=== PATIENT | female | born 1965 | race Caucasian/White ===

== ENCOUNTER 2017-06-25 16:28 | Inpatient (IN) | payer OTHER ==
[~2017-06-25] VITALS: Ht 160 cm; Wt 78.0 kg
[~2017-06-25 16:28] MED LIST: BCPILLS PO
[2017-06-25] MEDS ORDERED: SODIUM CHLORIDE 0.9% 1000ML 1,000 ML IV STA (16:40)
[2017-06-25] MEDS ORDERED: ONDANSETRON INJ 2 MG/ML 2 ML VIAL IV STA (16:40)
--- NOTE | 2017-06-25 16:42 | EMERGENCY ROOM VISIT NOTE ---
History Report prepared by Rena: Sung Lowe Under the Supervision of: Dr. Yovani Salazar M.D. First contact with patient: 16:34 Chief Complaint: ABDOMINAL PAIN Stated Complaint: SEVERE ABD PAIN Nursing Triage Summary: Pt with abd pain that started around around 1330 today. History of kidney stones 22 years ago. History of Present Illness The patient is a 52 year old female who presents to the Emergency Room with complaints of constant abdominal pain beginning four hours ago. Per , the patient was driving home when she began to feel pain in her left back and abdomen. He notes that the patient then started dry heaving but did not vomit. He reports that the patient was relieved mildly when she sat down at home. He states that the patient then went to urinate and was only able to urinate a small amount. He notes that the patient's pain significantly worsened when she tried to urinate. The patient also complains of a decreased frequency of urination despite feeling like she needs to urinate. She notes that she took two Tylenol with no relief of her symptoms. She denies any recent abdominal trauma but has a history of kidney stones. She rates her pain as a 10/10. Source of History: patient, spouse/significant other Onset: four hours ago Position: chest (left), abdomen Symptom Intensity: 10/10 Timing: constant Associated Symptoms: No vomiting Note: The patient also complains of a decreased frequency of urination despite feeling like she needs to urinate. She denies any recent abdominal trauma. Review of Systems See HPI for pertinent positives & negatives. A total of 10 systems reviewed and were otherwise negative. Past Medical & Surgical Medical Problems: (1) Kidney stone (2) Kidney stone (3) Viral wart Family History No pertinent family history stated. Social History Smoking Status: Never Smoker Marital Status: Housing Status: lives with family Current/Historical Medications Scheduled Azelastine Hcl-Fluticasone Pro (Dymista), 2 SPRY TIARA BID Fluticasone Propionate (Nasal) (Flonase Allergy Relief), 2 SPRAYS TIARA DAILY Levonorgestrel & Eth Estradiol (Vienva 0.1-20 mg-Mcg), 1 TAB PO DAILY Allergies Coded Allergies: Ibuprofen (Verified Allergy, Severe, HIVES, 06/25/17) Sulfa Antibiotics (Verified Allergy, Severe, HIVES, 06/25/17) Physical Exam Vital Signs Date Time Temp Pulse Resp B/P (MAP) Pulse Ox O2 Delivery O2 Flow Rate FiO2 06/25/17 17:32 94 28 135/79 100 06/25/17 16:31 74 22 129/63 100 Room Air Physical Exam GENERAL: Patient is in significant distress secondary to pain. HEENT: No acute trauma, normocephalic atraumatic, mucous membranes moist, no nasal congestion, no scleral icterus. NECK: No stridor, no adenopathy, no meningismus, trachea is midline. LUNGS: Clear to auscultation bilaterally, no wheeze, no rhonchi, breath sounds equal. HEART: Without murmurs gallops or rubs, regular rate and rhythm. ABDOMEN: Soft, bowel sounds positive, no hernias, no peritonitis. Tender to LLQ. BACK: Left flank discomfort to percussion. EXTREMITIES: No cyanosis or edema, full range of motion of all the joints without pain or difficulty, no signs for acute trauma. NEUROLOGIC: Oriented x 3, no acute motor or sensory deficits, no focal weakness. SKIN: No rash, no jaundice, no diaphoresis. Medical Decision & Procedures ER Provider Diagnostic Interpretation: Radiology results as stated below per my review and radiologist interpretation: CT SCAN OF THE ABDOMEN AND PELVIS WITHOUT IV CONTRAST FINDINGS: Lung bases: The heart is normal in size and without pericardial effusion. The lung bases are clear noting mild left basilar atelectasis. There is a small hiatal hernia. Liver: The unenhanced liver is normal in size, contour, and attenuation. There is no intrahepatic biliary ductal dilatation. Gallbladder: Unremarkable. Spleen: Normal in size and attenuation. Pancreas: Unremarkable. Adrenal glands: Unremarkable. Kidneys: The left kidney is mildly enlarged and edematous. There is a 7 mm obstructing calculus at the left vesicoureteral junction seen on image #351. This causes moderate left hydroureteronephrosis. There is associated left perinephric and periureteric stranding. There are numerous additional punctate nonobstructing left renal calculi. There are numerous (greater than 10) nonobstructing right renal calculi which measure up to 6 mm. There is no right ureteral calculus or hydronephrosis. There is no evidence of contour deforming renal mass lesion. Abdominal vasculature: The abdominal aorta is normal in course and caliber. Bowel: The small bowel and colon are normal in course and caliber. The appendix is well-visualized and normal. Peritoneum: There is no intraperitoneal free air or abdominal ascites. There is a small fat-containing umbilical hernia. Lymphadenopathy: None. Pelvic viscera: The bladder, uterus, and adnexa are normal as visualized. Skeletal structures: No lytic or blastic lesions are seen. IMPRESSION: 1. There is a 7 mm obstructing calculus at the left vesicoureteral junction. This causes moderate left hydroureteronephrosis. 2. Numerous additional nonobstructing calculi are present in both kidneys. 3. Additional findings as above. Electronically signed by: Yovani Alejandro M.D. 06/25/2017 6:14 PM Laboratory Results 06/25/17 16:43 Red Blood Count 4.51, Mean Corpuscular Volume 92.0, Mean Corpuscular Hemoglobin 32.2, Mean Corpuscular Hemoglobin Concent 34.9, Mean Platelet Volume 10.1, Neutrophils (%) (Auto) 77.0, Lymphocytes (%) (Auto) 17.1, Monocytes (%) (Auto) 5.4, Eosinophils (%) (Auto) 0.2, Basophils (%) (Auto) 0.1, Neutrophils # (Auto) 9.61, Lymphocytes # (Auto) 2.13, Monocytes # (Auto) 0.67, Eosinophils # (Auto) 0.03, Basophils # (Auto) 0.01 06/25/17 16:43 Test 06/25/17 16:43 06/25/17 18:45 White Blood Count 12.48 K/uL (4.8-10.8) Red Blood Count 4.51 M/uL (4.2-5.4) Hemoglobin 14.5 g/dL (12.0-16.0) Hematocrit 41.5 % (37-47) Mean Corpuscular Volume 92.0 fL (80-100) Mean Corpuscular Hemoglobin 32.2 pg (25-34) Mean Corpuscular Hemoglobin Concent 34.9 g/dl (32-36) Platelet Count 267 K/uL (130-400) Mean Platelet Volume 10.1 fL (7.4-10.4) Neutrophils (%) (Auto) 77.0 % Lymphocytes (%) (Auto) 17.1 % Monocytes (%) (Auto) 5.4 % Eosinophils (%) (Auto) 0.2 % Basophils (%) (Auto) 0.1 % Neutrophils # (Auto) 9.61 K/uL (1.4-6.5) Lymphocytes # (Auto) 2.13 K/uL (1.2-3.4) Monocytes # (Auto) 0.67 K/uL (0.11-0.59) Eosinophils # (Auto) 0.03 K/uL (0-0.5) Basophils # (Auto) 0.01 K/uL (0-0.2) RDW Standard Deviation 42.4 fL (36.4-46.3) RDW Coefficient of Variation 12.5 % (11.5-14.5) Immature Granulocyte % (Auto) 0.2 % Immature Granulocyte # (Auto) 0.03 K/uL (0.00-0.02) Anion Gap 12.0 mmol/L (3-11) Est Creatinine Clear Calc Drug Dose 65.1 ml/min Estimated GFR () 75.0 Estimated GFR (Non- 64.7 BUN/Creatinine Ratio 17.5 (10-20) Calcium Level 9.3 mg/dl (8.5-10.1) Total Bilirubin 0.6 mg/dl (0.2-1) Aspartate Amino Transf (AST/SGOT) 14 U/L (15-37) Alanine Aminotransferase (ALT/SGPT) 19 U/L (12-78) Alkaline Phosphatase 53 U/L (45-117) Total Protein 8.2 gm/dl (6.4-8.2) Albumin 4.0 gm/dl (3.4-5.0) Globulin 4.2 gm/dl (2.5-4.0) Albumin/Globulin Ratio 1.0 (0.9-2) Lipase 174 U/L (73-393) Urine Color YELLOW Urine Appearance CLEAR (CLEAR) Urine pH 8.0 (4.5-7.5) Urine Specific [place] 1.024 (1.000-1.030) Urine Protein NEG (NEG) Urine Glucose (UA) NEG (NEG) Urine Ketones 3+ (NEG) Urine Occult Blood 1+ (NEG) Urine Nitrite NEG (NEG) Urine Bilirubin NEG (NEG) Urine Urobilinogen NEG (NEG) Urine Leukocyte Esterase TRACE (NEG) Laboratory results reviewed by me. Medications Administered Medications (Trade) Dose Ordered Sig/Lucía Route Start Time Stop Time Status Last Admin Dose Admin Ondansetron HCl (Zofran Inj) 4 mg NOW STAT IV 06/25/17 16:40 06/25/17 16:42 DC 06/25/17 16:50 4 MG Sodium Chloride 1,000 ml @ 999 mls/hr Q1H1M STAT IV 06/25/17 16:40 06/25/17 17:40 DC 06/25/17 16:50 999 MLS/HR Morphine Sulfate (MoRPHine SULFATE INJ) 2 mg STK-MED ONCE .ROUTE 06/25/17 16:46 06/25/17 16:47 DC 06/25/17 16:46 2 MG Morphine Sulfate (MoRPHine SULFATE INJ) 4 mg STK-MED ONCE .ROUTE 06/25/17 16:46 06/25/17 16:47 DC 06/25/17 16:50 4 MG Promethazine HCl 12.5 mg/Sodium Chloride 50.5 ml @ 204 mls/hr NOW STAT IV 06/25/17 17:11 06/25/17 17:25 DC 06/25/17 17:34 204 MLS/HR Hydromorphone HCl (Dilaudid Inj) 0.5 mg STK-MED ONCE .ROUTE 06/25/17 17:23 06/25/17 17:24 DC 06/25/17 17:30 0.5 MG Hydromorphone HCl (Dilaudid Inj) 0.5 mg STK-MED ONCE .ROUTE 06/25/17 19:07 06/25/17 19:08 DC 06/25/17 19:10 0.5 MG ED Course 1636: The patient was evaluated in room A8. A complete history and physical exam was performed. 1640: Sodium Chloride 1000 ml @ 999 mls/hr IV, Zofran Inj 4mg IV 1710: I reevaluated the patient, she is still having a lot of pain. 1711: Dilaudid Inj 0.5mg IV, Promethazine HCl 12.5mg/Sodium Chloride 50.5 ml @ 204mls/hr 1820: I reevaluated and updated the patient. I spoke to her about the size of her stone. 1838: Upon reexamination the patient is stable. I discussed results and treatment plan with the patient. She verbalizes agreement and understanding. I spoke with Dr. Lindo - Robert Austin. We discussed the patient's results and findings. The patient will be evaluated for further management. 1903: Dilaudid Inj 0.5mg IV Medical Decision Differential diagnoses include: Renal colic, UTI, diverticulitis, bowel perforation, hernia, and mesenteric adenitis. There is a mild leukocytosis, likely consistent with her pain. No concerning anemia. No significant electrolyte abnormalities. No kidney failure, hepatitis or pancreatitis. Urinalysis shows some blood and ketones, microscopic breakdown of the UA is pending. Abdominal and pelvis CT shows a 7 mm left ureteral stone at the UV junction. Hydronephrosis was present. The patient was in significant discomfort. She was given IV saline, IV Zofran and IV morphine. She required IV Dilaudid and then IV Phenergan. The Dilaudid and Phenergan seemed to help her symptoms more than the morphine and Zofran. The patient is still having discomfort. She is going to require a hospital stay for pain control and possibly urologic intervention if the stone does not pass naturally. I spoke to the patient and case management. The on-call hospitalist was consulted. Medication Reconcilliation Current Medication List: was personally reviewed by me Blood Pressure Screening Patient's blood pressure: Elevated blood pressure Blood pressure disposition: Elevated BP felt to be situational Consults Time Called: 1835 Consulting Physician: Dr. Lindo - Robert Hawk Returned Call: [phone] Discussed the patient's case. The patient will be evaluated for further management. Impression Primary Impression: Renal colic Scribe Attestation The scribe's documentation has been prepared under my direction and personally reviewed by me in its entirety. I confirm that the note above accurately reflects all work, treatment, procedures, and medical decision making performed by me. Departure Information Dispostion Being Evaluated By Hospitalist Referrals No Doctor, Assigned (PCP) Patient Instructions My [facility]
[2017-06-25] MEDS ORDERED: MoRPHine SULFATE 10 MG/ML CARP/VIAL IV PRN (16:45)
[2017-06-25] MEDS ORDERED: MoRPHine SULFATE 4 MG/ML 1 ML CARP\\VIAL ONE (16:46)
[2017-06-25] MEDS ORDERED: MoRPHine SULFATE 2 MG/ML CARP ONE (16:46)
[2017-06-25 17:00] LABS: BASO % 0.1 %; BASO ABS # 0.01 K/uL (0-0.2); COMPLETE YES; EOS % 0.2 %; HEMATOCRIT 41.5 % (37-47); IG% 0.2 %; LYMPH % 17.1 %; LYMPH ABS # 2.13 K/uL (1.2-3.4); MEAN CORPUSCULAR HEMOGLOBIN 32.2 pg (25-34); MEAN CORPUSCULAR HGB CONC 34.9 g/dl (32-36); MEAN PLATELET VOLUME 10.1 fL (7.4-10.4); MONO % 5.4 %; PLATELET COUNT 267 K/uL (130-400); RED BLOOD COUNT 4.51 M/uL (4.2-5.4); WHITE BLOOD COUNT 12.48 K/uL (4.8-10.8)
[2017-06-25] MEDS ORDERED: PROMETHAZINE HCL INJ 12.5 MG in SODIUM CHLORIDE 0.9% 50ML 50 ML IV STA (17:11)
[2017-06-25] MEDS ORDERED: HYDROmorphone INJ 2 MG/ML SYR/VIAL IV STA ×2 (17:11→19:03)
[2017-06-25] MEDS ORDERED: HYDROmorphone INJ 0.5 MG/0.5 ML SYR ONE ×2 (17:23→19:07)
[2017-06-25] MEDS ORDERED: FLUT0.15 NAE (17:25)
[2017-06-25] MEDS ORDERED: [UNRECOGNIZED DRUG - CODE] PO (17:25)
[2017-06-25] MEDS ORDERED: AZEL30SP NAE (17:25)
[2017-06-25 17:26] LABS: BUN/CREATININE RATIO 17.5 (10-20); CALCIUM 9.3 mg/dl (8.5-10.1); POTASSIUM 3.4 mmol/L (3.5-5.1)
--- NOTE | 2017-06-25 18:15 | DIAGNOSTIC IMAGING REPORT ---
CT SCAN OF THE ABDOMEN AND PELVIS WITHOUT IV CONTRAST CLINICAL HISTORY: Flank pain and hematuria. COMPARISON STUDY: No priors. TECHNIQUE: CT scan of the abdomen and pelvis is performed from the lung bases to the proximal femora. Images are reviewed in the axial, sagittal, and coronal planes. IV contrast was not administered for this examination as per the referring clinician. A dose lowering technique was utilized adhering to the principles of ALARA. CT DOSE: 957.51 mGy.cm FINDINGS: Lung bases: The heart is normal in size and without pericardial effusion. The lung bases are clear noting mild left basilar atelectasis. There is a small hiatal hernia. Liver: The unenhanced liver is normal in size, contour, and attenuation. There is no intrahepatic biliary ductal dilatation. Gallbladder: Unremarkable. Spleen: Normal in size and attenuation. Pancreas: Unremarkable. Adrenal glands: Unremarkable. Kidneys: The left kidney is mildly enlarged and edematous. There is a 7 mm obstructing calculus at the left vesicoureteral junction seen on image #351. This causes moderate left hydroureteronephrosis. There is associated left perinephric and periureteric stranding. There are numerous additional punctate nonobstructing left renal calculi. There are numerous (greater than 10) nonobstructing right renal calculi which measure up to 6 mm. There is no right ureteral calculus or hydronephrosis. There is no evidence of contour deforming renal mass lesion. Abdominal vasculature: The abdominal aorta is normal in course and caliber. Bowel: The small bowel and colon are normal in course and caliber. The appendix is well-visualized and normal. Peritoneum: There is no intraperitoneal free air or abdominal ascites. There is a small fat-containing umbilical hernia. Lymphadenopathy: None. Pelvic viscera: The bladder, uterus, and adnexa are normal as visualized. Skeletal structures: No lytic or blastic lesions are seen. IMPRESSION: 1. There is a 7 mm obstructing calculus at the left vesicoureteral junction. This causes moderate left hydroureteronephrosis. 2. Numerous additional nonobstructing calculi are present in both kidneys. 3. Additional findings as above. Electronically signed by: Yovani Alejandro M.D. 06/25/2017 6:14 PM Dictated Date/Time: 06/25/2017 6:09 PM
[2017-06-25 19:11] LABS: URINE APPEARANCE CLEAR (CLEAR); URINE BILIRUBIN NEG (NEG); URINE COLOR YELLOW; URINE EPITHELIAL CELL AUTO >30 /lpf (0-5); URINE NITRITE NEG (NEG); URINE SPECIFIC GRAVITY 1.024 (1.000-1.030); UROBILINOGEN NEG (NEG); ZZUR CULT IF INDIC CLEAN CATCH NO
[2017-06-25 19:19] LABS: MANUAL MICROSCOPIC REQUIRED? NO; REVIEW REQ? YES
[2017-06-25 19:44] LABS: URINE MUCUS PRESENT (NONE PRSENT)
[2017-06-25] MEDS ORDERED: POLYETHYLENE (MIRALAX) 17 GM PACK PO PRN (19:45)
[2017-06-25] MEDS ORDERED: ONDANSETRON INJ 2 MG/ML 2 ML VIAL IV PRN (19:45)
[2017-06-25] MEDS ORDERED: ACETAMINOPHEN 325 MG TAB PO PRN (19:45)
[2017-06-25 20:10] VITALS: BP 151/82; PULSE 84; TEMP 36.6; O2SAT 100; Ht 160 cm; Wt 78.0 kg
[2017-06-25] MEDS: SODIUM CHLORIDE 0.9% 1000ML 1,000 ML IV SCH (20:22)
[2017-06-25 20:33] LABS: PROTHROMBIN TIME (PATIENT) 10.8 SECONDS (9.0-12.0)
[2017-06-25] MEDS ORDERED: SODIUM CHLORIDE 0.9% 1000ML 1,000 ML IV SCH (20:49)
[2017-06-25] MEDS ORDERED: NALOXONE HCL 0.4 MG/1 ML VIAL/CARP IV PRN (21:00)
[2017-06-25] MEDS ORDERED: TAMSULOSIN HCL 0.4 MG CAP PO SCH (21:00)
[2017-06-25] MEDS ORDERED: HYDROmorphone HCL 0.5MG/ML 50 ML CASSETTE ONE (21:07)
--- NOTE | 2017-06-25 21:08 | History and Physical ---
History & Physical Date & Time of Service: Jun 25, 2017 at 20:51 Chief Complaint: Kidney Stone Primary Care Physician: Won Camargo D.O. History of Present Illness Source: patient, spouse, clinic records, hospital records 52 yo F with h/o kidney stones presents with sudden onset L flank pain and chills several hours [employer]. She reports a radiation of the pain into her L groin area. She denies any blood in her urine and denies UTI symptoms. She underwent a CT a/p without contrast revealing a 7mm obstructing calculus at the left vesicoureteral junction causing moderate L hydroureteronephrosis. Numerous additional nonobstructing calculi are present in both kidneys. She denies nausea, vomiting, chest pain, shortness of breath. She had a normal BM today. Past Medical/Surgical History Medical Problems: (1) Angioedema Permanent Comment: in response to Ibuprofen Status: Chronic (2) Nephrolithiasis Status: Chronic (3) Seasonal allergic rhinitis Status: Chronic (4) Viral wart Status: Resolved Surgical Problems: (1) S/P Status: Chronic Family History FH: HTN (hypertension) Scleroderma Social History Smoking Status: Never Smoker Smokeless Tobacco Use: No Alcohol Use: socially Drug Use: none Marital Status: Housing status: lives with significant other Immunizations History of Influenza Vaccine: Yes Influenza Vaccine Date: Aug 07, 2008 History of Tetanus Vaccine?: Unknown History of Pneumococcal: No History of Hepatitis B Vaccine: No Multi-Drug Resistant Organisms History of MDRO: No Allergies Coded Allergies: Amoxicillin (Verified Allergy, Severe, hives, 06/25/17) Demerol Hcl (Verified Allergy, Severe, hives, 06/25/17) Ibuprofen (Verified Allergy, Severe, HIVES, 06/25/17) Sulfa Antibiotics (Verified Allergy, Severe, HIVES, 06/25/17) Home Medications Scheduled Azelastine Hcl-Fluticasone Pro (Dymista), 2 SPRY TIARA BID Fluticasone Propionate (Nasal) (Flonase Allergy Relief), 2 SPRAYS TIARA DAILY Levonorgestrel & Eth Estradiol (Vienva 0.1-20 mg-Mcg), 1 TAB PO DAILY Review of Systems At least ten systems were reviewed and negative except as indicated in HPI above. Physical Exam Vital Signs Date Time Temp Pulse Resp B/P (MAP) Pulse Ox O2 Delivery O2 Flow Rate FiO2 06/25/17 20:05 64 18 137/77 98 06/25/17 17:32 94 28 135/79 100 06/25/17 16:31 74 22 129/63 100 Room Air General Appearance: WD/WN, + moderate distress Head: normocephalic, atraumatic Eyes: normal inspection, sclerae normal ENT: hearing grossly normal Neck: trachea midline Respiratory/Chest: lungs clear, normal breath sounds, no respiratory distress, no accessory muscle use Cardiovascular: regular rate, rhythm, no edema, no gallop, no JVD, no murmur, normal peripheral pulses Abdomen/GI: + pertinent finding (hypoactive bowel sounds, LLQ TTP, no CVA tenderness) Back: normal inspection, no CVA tenderness Extremities/Musculoskelatal: normal inspection, no pedal edema, normal range of motion 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, no motor/sensory deficits, alert, normal mood/affect, oriented x 3 Skin: normal color, warm/dry, no rash Diagnostics Laboratory Results 06/25/17 16:43 Red Blood Count 4.51, Mean Corpuscular Volume 92.0, Mean Corpuscular Hemoglobin 32.2, Mean Corpuscular Hemoglobin Concent 34.9, Mean Platelet Volume 10.1, Neutrophils (%) (Auto) 77.0, Lymphocytes (%) (Auto) 17.1, Monocytes (%) (Auto) 5.4, Eosinophils (%) (Auto) 0.2, Basophils (%) (Auto) 0.1, Neutrophils # (Auto) 9.61, Lymphocytes # (Auto) 2.13, Monocytes # (Auto) 0.67, Eosinophils # (Auto) 0.03, Basophils # (Auto) 0.01 06/25/17 16:43 Test 06/25/17 16:43 06/25/17 18:45 White Blood Count 12.48 K/uL (4.8-10.8) Red Blood Count 4.51 M/uL (4.2-5.4) Hemoglobin 14.5 g/dL (12.0-16.0) Hematocrit 41.5 % (37-47) Mean Corpuscular Volume 92.0 fL (80-100) Mean Corpuscular Hemoglobin 32.2 pg (25-34) Mean Corpuscular Hemoglobin Concent 34.9 g/dl (32-36) Platelet Count 267 K/uL (130-400) Mean Platelet Volume 10.1 fL (7.4-10.4) Neutrophils (%) (Auto) 77.0 % Lymphocytes (%) (Auto) 17.1 % Monocytes (%) (Auto) 5.4 % Eosinophils (%) (Auto) 0.2 % Basophils (%) (Auto) 0.1 % Neutrophils # (Auto) 9.61 K/uL (1.4-6.5) Lymphocytes # (Auto) 2.13 K/uL (1.2-3.4) Monocytes # (Auto) 0.67 K/uL (0.11-0.59) Eosinophils # (Auto) 0.03 K/uL (0-0.5) Basophils # (Auto) 0.01 K/uL (0-0.2) RDW Standard Deviation 42.4 fL (36.4-46.3) RDW Coefficient of Variation 12.5 % (11.5-14.5) Immature Granulocyte % (Auto) 0.2 % Immature Granulocyte # (Auto) 0.03 K/uL (0.00-0.02) Prothrombin Time 10.8 SECONDS (9.0-12.0) Prothromb Time International Ratio 1.0 (0.9-1.1) Anion Gap 12.0 mmol/L (3-11) Est Creatinine Clear Calc Drug Dose 65.1 ml/min Estimated GFR () 75.0 Estimated GFR (Non- 64.7 BUN/Creatinine Ratio 17.5 (10-20) Calcium Level 9.3 mg/dl (8.5-10.1) Total Bilirubin 0.6 mg/dl (0.2-1) Aspartate Amino Transf (AST/SGOT) 14 U/L (15-37) Alanine Aminotransferase (ALT/SGPT) 19 U/L (12-78) Alkaline Phosphatase 53 U/L (45-117) Total Protein 8.2 gm/dl (6.4-8.2) Albumin 4.0 gm/dl (3.4-5.0) Globulin 4.2 gm/dl (2.5-4.0) Albumin/Globulin Ratio 1.0 (0.9-2) Lipase 174 U/L (73-393) Urine Color YELLOW Urine Appearance CLEAR (CLEAR) Urine pH 8.0 (4.5-7.5) Urine Specific [place] 1.024 (1.000-1.030) Urine Protein NEG (NEG) Urine Glucose (UA) NEG (NEG) Urine Ketones 3+ (NEG) Urine Occult Blood 1+ (NEG) Urine Nitrite NEG (NEG) Urine Bilirubin NEG (NEG) Urine Urobilinogen NEG (NEG) Urine Leukocyte Esterase TRACE (NEG) Urine WBC (Auto) 1-5 /hpf (0-5) Urine RBC (Auto) 10-30 /hpf (0-4) Urine Hyaline Casts (Auto) 1-5 /lpf (0-5) Urine Epithelial Cells (Auto) >30 /lpf (0-5) Urine Bacteria (Auto) NEG (NEG) Urine Renal Epithelial Cells /lpf (0-5) Urine Crystals AMORPHOUS SEDIMENT (NONE Urine Mucus PRESENT (NONE PRSENT) Results Past 24 Hours Test 06/25/17 16:43 06/25/17 18:45 Range/Units White Blood Count 12.48 4.8-10.8 K/uL Red Blood Count 4.51 4.2-5.4 M/uL Hemoglobin 14.5 12.0-16.0 g/dL Hematocrit 41.5 37-47 % Mean Corpuscular Volume 92.0 80-100 fL Mean Corpuscular Hemoglobin 32.2 25-34 pg Mean Corpuscular Hemoglobin Concent 34.9 32-36 g/dl Platelet Count 267 130-400 K/uL Mean Platelet Volume 10.1 7.4-10.4 fL Neutrophils (%) (Auto) 77.0 % Lymphocytes (%) (Auto) 17.1 % Monocytes (%) (Auto) 5.4 % Eosinophils (%) (Auto) 0.2 % Basophils (%) (Auto) 0.1 % Neutrophils # (Auto) 9.61 1.4-6.5 K/uL Lymphocytes # (Auto) 2.13 1.2-3.4 K/uL Monocytes # (Auto) 0.67 0.11-0.59 K/uL Eosinophils # (Auto) 0.03 0-0.5 K/uL Basophils # (Auto) 0.01 0-0.2 K/uL RDW Standard Deviation 42.4 36.4-46.3 fL RDW Coefficient of Variation 12.5 11.5-14.5 % Immature Granulocyte % (Auto) 0.2 % Immature Granulocyte # (Auto) 0.03 0.00-0.02 K/uL Prothrombin Time 10.8 9.0-12.0 SECONDS Prothromb Time International Ratio 1.0 0.9-1.1 Sodium Level 137 136-145 mmol/L Potassium Level 3.4 3.5-5.1 mmol/L Chloride Level 105 98-107 mmol/L Carbon Dioxide Level 20 21-32 mmol/L Anion Gap 12.0 3-11 mmol/L Blood Urea Nitrogen 17 7-18 mg/dl Creatinine 1.00 0.60-1.20 mg/dl Est Creatinine Clear Calc Drug Dose 65.1 ml/min Estimated GFR () 75.0 Estimated GFR (Non- 64.7 BUN/Creatinine Ratio 17.5 10-20 Random Glucose 137 70-99 mg/dl Calcium Level 9.3 8.5-10.1 mg/dl Total Bilirubin 0.6 0.2-1 mg/dl Aspartate Amino Transf (AST/SGOT) 14 15-37 U/L Alanine Aminotransferase (ALT/SGPT) 19 12-78 U/L Alkaline Phosphatase 53 45-117 U/L Total Protein 8.2 6.4-8.2 gm/dl Albumin 4.0 3.4-5.0 gm/dl Globulin 4.2 2.5-4.0 gm/dl Albumin/Globulin Ratio 1.0 0.9-2 Lipase 174 73-393 U/L Urine Color YELLOW Urine Appearance CLEAR CLEAR Urine pH 8.0 4.5-7.5 Urine Specific [place] 1.024 1.000-1.030 Urine Protein NEG NEG Urine Glucose (UA) NEG NEG Urine Ketones 3+ NEG Urine Occult Blood 1+ NEG Urine Nitrite NEG NEG Urine Bilirubin NEG NEG Urine Urobilinogen NEG NEG Urine Leukocyte Esterase TRACE NEG Urine WBC (Auto) 1-5 0-5 /hpf Urine RBC (Auto) 10-30 0-4 /hpf Urine Hyaline Casts (Auto) 1-5 0-5 /lpf Urine Epithelial Cells (Auto) >30 0-5 /lpf Urine Bacteria (Auto) NEG NEG Urine Renal Epithelial Cells 0-5 /lpf Urine Crystals AMORPHOUS SEDIMENT NONE PRSENT Urine Mucus PRESENT NONE PRSENT Diagnostic Radiology CT SCAN OF THE ABDOMEN AND PELVIS WITHOUT IV CONTRAST CLINICAL HISTORY: Flank pain and hematuria. COMPARISON STUDY: No priors. TECHNIQUE: CT scan of the abdomen and pelvis is performed from the lung bases to the proximal femora. Images are reviewed in the axial, sagittal, and coronal planes. IV contrast was not administered for this examination as per the referring clinician. A dose lowering technique was utilized adhering to the principles of ALARA. CT DOSE: 957.51 mGy.cm FINDINGS: Lung bases: The heart is normal in size and without pericardial effusion. The lung bases are clear noting mild left basilar atelectasis. There is a small hiatal hernia. Liver: The unenhanced liver is normal in size, contour, and attenuation. There is no intrahepatic biliary ductal dilatation. Gallbladder: Unremarkable. Spleen: Normal in size and attenuation. Pancreas: Unremarkable. Adrenal glands: Unremarkable. Kidneys: The left kidney is mildly enlarged and edematous. There is a 7 mm obstructing calculus at the left vesicoureteral junction seen on image #[id number]. This causes moderate left hydroureteronephrosis. There is associated left perinephric and periureteric stranding. There are numerous additional punctate nonobstructing left renal calculi. There are numerous (greater than 10) nonobstructing right renal calculi which measure up to 6 mm. There is no right ureteral calculus or hydronephrosis. There is no evidence of contour deforming renal mass lesion. Abdominal vasculature: The abdominal aorta is normal in course and caliber. Bowel: The small bowel and colon are normal in course and caliber. The appendix is well-visualized and normal. Peritoneum: There is no intraperitoneal free air or abdominal ascites. There is a small fat-containing umbilical hernia. Lymphadenopathy: None. Pelvic viscera: The bladder, uterus, and adnexa are normal as visualized. Skeletal structures: No lytic or blastic lesions are seen. IMPRESSION: 1. There is a 7 mm obstructing calculus at the left vesicoureteral junction. This causes moderate left hydroureteronephrosis. 2. Numerous additional nonobstructing calculi are present in both kidneys. 3. Additional findings as above. Impression Assessment and Plan 52 yo F presents with L kidney stone and severe renal colic. 1. Renal colic 2/2 L 7mm vesicourethral stone--pt has a h/o kidney stones which have all passed spontaneously in the past. With size and degree of discomfort, will contact Urology. Current goals are pain control and will give Dilaudid TRACK OILER for this as well as scheduled Tylenol. Flomax given, NS @ 150 mls/ hr overnight and strain all urine. Antiemetics PRN. NPO p MN in case of procedure in am. 2. Seasonal allergies-cont Flonase and Azelastine nasal sprays. 3. Perimenopause-on Orsythia which is a non-formulary estrogen supplement due nightly. Pharmacy to assist with NF medication. Pt aware she may have to use home med. DVT proph-Lovenox on hold in case of procedure in am. Full Code Reg Diet/NPO p MN Dispo-Med/Surg Susanne Lindo DO [facility] Level of Care Med/Surg Resuscitation Status FULL RESUSCITATION VTE Prophylaxis VTE Risk Assessment Done? Y/N: Yes Risk Level: Moderate Given or contraindicated: Enoxaparin (Lovenox)SQ
[2017-06-25] MEDS: HYDROmorphone HCL 0.5MG/ML 50 ML CASSETTE IV PRN ×2 (21:36→23:10)
[2017-06-25] MEDS ORDERED: HYDROmorphone INJ 0.5 MG/0.5 ML SYR IV ONE (22:00)
[2017-06-25] MEDS: ACETAMINOPHEN 500 MG TAB PO SCH (22:21)
[2017-06-25] MEDS: DOCUSATE SODIUM/SENNA 50/8.6MG TAB PO SCH (22:21)
[2017-06-25 22:34] VITALS: BP 130/83; PULSE 86; TEMP 36.8; O2SAT 98
[2017-06-25 23:30] VITALS: BP 108/67; PULSE 81; TEMP 37.1; O2SAT 97
[2017-06-25] MEDS: DYMISTA~ORDER AWAITING ACTION SCH (23:58)
[2017-06-26 00:30] VITALS: BP 104/69; PULSE 88; O2SAT 98
[2017-06-26] MEDS ORDERED: INFLUENZA VIRUS QUAD VACCINE 0.5 ML SYR IM. ONE (00:30)
[2017-06-26] MEDS ORDERED: INFLUENZA ADMINISTRATION CHARGE ONE (00:30)
[2017-06-26 01:30] VITALS: BP 101/54; PULSE 86; O2SAT 98
[2017-06-26] MEDS: SODIUM CHLORIDE 0.9% 1000ML 1,000 ML IV SCH ×2 (03:19→10:04)
[2017-06-26 03:24] VITALS: BP 100/69; PULSE 77; TEMP 36.7; O2SAT 99
[2017-06-26] MEDS: ACETAMINOPHEN 500 MG TAB PO SCH ×2 (05:40→13:55)
[2017-06-26] MEDS: HYDROmorphone HCL 0.5MG/ML 50 ML CASSETTE IV PRN (07:02)
[2017-06-26 07:44] LABS: HEMATOCRIT 37.4 % (37-47); MEAN CELL VOLUME 93.5 fL (80-100); MEAN CORPUSCULAR HEMOGLOBIN 32.8 pg (25-34); MEAN PLATELET VOLUME 10.7 fL (7.4-10.4); PLATELET COUNT 208 K/uL (130-400); WHITE BLOOD COUNT 12.24 K/uL (4.8-10.8)
[2017-06-26 07:50] VITALS: BP 90/60; PULSE 72; TEMP 36.9; O2SAT 99
[2017-06-26 07:55] VITALS: O2SAT 99
[2017-06-26] MEDS: DYMISTA~ORDER AWAITING ACTION SCH (08:00)
[2017-06-26 08:18] LABS: BUN/CREATININE RATIO 17.4 (10-20); CALCIUM 8.2 mg/dl (8.5-10.1); CREATININE 0.62 mg/dl (0.60-1.20); POTASSIUM 3.9 mmol/L (3.5-5.1)
[2017-06-26] MEDS ORDERED: ENOXAPARIN 40 MG/0.4 ML SYR SQ SCH (09:00)
[2017-06-26] MEDS ORDERED: FLUTICASONE PROPIONATE NA SPR 16 GM BTL NAE SCH (09:00)
--- NOTE | 2017-06-26 09:25 | DIAGNOSTIC IMAGING REPORT ---
KUB CLINICAL HISTORY: left UVJ stone nephrocalcinosis COMPARISON STUDY: CT dated 06/25/2017 FINDINGS: Nonobstructive bowel pattern. Right kidney is poorly defined due to overlying bowel content. I've kidney shows a small calcification is mid to lower pole. The 7 mm calculus of the distal right ureter described on the CT study is not identified currently. This potentially overlaps the sacrum but also most likely has passed. IMPRESSION: 1. Probable interval passage of a distal right ureteral calculus. 2. The bilateral nephrocalcinosis described on CT examination is now well seen due to extensive overlying bowel content. 3. Nonobstructive bowel pattern. The above report was generated using voice recognition software. It may contain grammatical, syntax or spelling errors. Electronically signed by: Wesly Singleton M.D. 06/26/2017 9:23 AM Dictated Date/Time: 06/26/2017 9:22 AM
--- NOTE | 2017-06-26 09:27 | DIAGNOSTIC IMAGING REPORT ---
CHEST 2 VIEWS ROUTINE CLINICAL HISTORY: Preoperative evaluation. COMPARISON STUDY: No previous studies for comparison. FINDINGS: Lung volumes are normal. No pneumothorax or pleural effusion is present. Pulmonary vascularity is normal. Cardiomediastinal silhouette is normal. IMPRESSION: No acute cardiopulmonary findings. Electronically signed by: Sharath Mendoza M.D. 06/26/2017 9:26 AM Dictated Date/Time: 06/26/2017 9:25 AM
[2017-06-26] MEDS: DOCUSATE SODIUM/SENNA 50/8.6MG TAB PO SCH (10:01)
--- NOTE | 2017-06-26 10:38 | Urology Consultation ---
History General Date of Service: Jun 26, 2017. Chief Complaint: left flank pain Primary Care Physician: Won Camargo D.O. Pt seen a urologist before?: No History of Present Illness 52 yo female presents to [facility] with c/o severe left flank pain accompanied by n/ v yesterday afternoon. CT scan showing a 7mm left UVJ stone. Her pain has completely resolved this morning. Denies f/c, n/v, dysuria, gross hematuria, or pain. She does have a previous hx of stones while , which she was able to pass on her own. She has never needed a procedure for the stones in the past. She is currently afebrile. Cr is normal. White count is 12.24. Imaging Imaging: CT Laboratory Last 24 Hours Test 06/25/17 16:43 06/25/17 17:00 06/25/17 18:45 06/26/17 07:06 White Blood Count 12.48 K/uL 12.24 K/uL Red Blood Count 4.51 M/uL 4.00 M/uL Hemoglobin 14.5 g/dL 13.1 g/dL Hematocrit 41.5 % 37.4 % Mean Corpuscular Volume 92.0 fL 93.5 fL Mean Corpuscular Hemoglobin 32.2 pg 32.8 pg Mean Corpuscular Hemoglobin Concent 34.9 g/dl 35.0 g/dl Platelet Count 267 K/uL 208 K/uL Mean Platelet Volume 10.1 fL 10.7 fL Neutrophils (%) (Auto) 77.0 % Lymphocytes (%) (Auto) 17.1 % Monocytes (%) (Auto) 5.4 % Eosinophils (%) (Auto) 0.2 % Basophils (%) (Auto) 0.1 % Neutrophils # (Auto) 9.61 K/uL Lymphocytes # (Auto) 2.13 K/uL Monocytes # (Auto) 0.67 K/uL Eosinophils # (Auto) 0.03 K/uL Basophils # (Auto) 0.01 K/uL RDW Standard Deviation 42.4 fL 42.7 fL RDW Coefficient of Variation 12.5 % 12.7 % Immature Granulocyte % (Auto) 0.2 % Immature Granulocyte # (Auto) 0.03 K/uL Prothrombin Time 10.8 SECONDS Prothromb Time International Ratio 1.0 Sodium Level 137 mmol/L 140 mmol/L Potassium Level 3.4 mmol/L 3.9 mmol/L Chloride Level 105 mmol/L 109 mmol/L Carbon Dioxide Level 20 mmol/L 21 mmol/L Anion Gap 12.0 mmol/L 10.0 mmol/L Blood Urea Nitrogen 17 mg/dl 11 mg/dl Creatinine 1.00 mg/dl 0.62 mg/dl Est Creatinine Clear Calc Drug Dose 65.1 ml/min 104.9 ml/min Estimated GFR () 75.0 120.2 Estimated GFR (Non- 64.7 103.7 BUN/Creatinine Ratio 17.5 17.4 Random Glucose 137 mg/dl 102 mg/dl Calcium Level 9.3 mg/dl 8.2 mg/dl Total Bilirubin 0.6 mg/dl Aspartate Amino Transf (AST/SGOT) 14 U/L Alanine Aminotransferase (ALT/SGPT) 19 U/L Alkaline Phosphatase 53 U/L Total Protein 8.2 gm/dl Albumin 4.0 gm/dl Globulin 4.2 gm/dl Albumin/Globulin Ratio 1.0 Lipase 174 U/L Hepatitis C Antibody Screen NEG Urine Color YELLOW Urine Appearance CLEAR Urine pH 8.0 Urine Specific [place] 1.024 Urine Protein NEG Urine Glucose (UA) NEG Urine Ketones 3+ Urine Occult Blood 1+ Urine Nitrite NEG Urine Bilirubin NEG Urine Urobilinogen NEG Urine Leukocyte Esterase TRACE Urine WBC (Auto) 1-5 /hpf Urine RBC (Auto) 10-30 /hpf Urine Hyaline Casts (Auto) 1-5 /lpf Urine Epithelial Cells (Auto) >30 /lpf Urine Bacteria (Auto) NEG Urine Renal Epithelial Cells /lpf Urine Crystals AMORPHOUS SEDIMENT Urine Mucus PRESENT Problem List Medical Problems: (1) Renal colic Status: Acute Past History kidney stones, other (seasonal allergies, viral wart) Past Surgical History: Family History FH: HTN (hypertension) Scleroderma Social History Smoking: non-smoker Alcohol: socially Drug use: none Marital status: Housing status: lives with significant other Immunizations History of Influenza Vaccine: Yes Influenza Vaccine Date: Aug 07, 2008 History of Tetanus Vaccine?: Unknown History of Pneumococcal: No History of Hepatitis B Vaccine: No History of MDRO No Allergies Coded Allergies: Amoxicillin (Verified Allergy, Severe, hives, 06/25/17) Ibuprofen (Verified Allergy, Severe, HIVES, 06/25/17) Meperidine (Verified Allergy, Severe, hives, 06/25/17) Sulfa Antibiotics (Verified Allergy, Severe, HIVES, 06/25/17) Medications Home Medications: Home Meds and Scripts Medications Dose Route/Sig Max Daily Dose Days Date Category Vienva 0.1-20 mg-Mcg (Levonorgestrel & Eth Estradiol) 1 Tab Tab 1 Tab PO DAILY 06/25/17 Reported Dymista (Azelastine Hcl-Fluticasone Pro) 1 Spr Spr 2 [place] TIARA BID 30 06/25/17 Reported Flonase Allergy Relief (Fluticasone Propionate (Nasal)) 50 Mcg/Act Spr 2 Sprays TIARA DAILY 06/25/17 Reported Inpatient Medications: Current Inpatient Medications Medications (Trade) Dose Ordered Sig/Lucía Route Start Time Stop Time Status Last Admin Dose Admin Enoxaparin Sodium (Lovenox Inj) 40 mg DAILY SQ 06/26/17 09:00 07/26/17 08:59 Future Hold Acetaminophen (Tylenol Tab) 650 mg Q4H PRN PO 06/25/17 19:45 07/25/17 19:44 Future Hold Polyethylene (Miralax Powder Packet) 17 gm DAILY PRN PO 06/25/17 19:45 07/25/17 19:44 Ondansetron HCl (Zofran Inj) 4 mg Q6H PRN IV 06/25/17 19:45 07/25/17 19:44 06/25/17 21:28 4 MG Sodium Chloride 1,000 ml @ 150 mls/hr Q6H40M IV 06/25/17 20:30 07/25/17 20:29 06/26/17 10:04 150 MLS/HR Acetaminophen (Tylenol Tab) 1,000 mg Q8 PO 06/25/17 22:00 07/25/17 21:59 06/26/17 05:40 1,000 MG Tamsulosin HCl (Flomax Cap) 0.4 mg HS PO 06/25/17 21:00 07/25/17 20:59 06/25/17 22:21 0.4 MG Naloxone HCl (Narcan Inj) 0.1 mg Q5M PRN IV 06/25/17 21:00 07/25/17 20:59 Hydromorphone HCl (Dilaudid Buttonhole Facer) 25 mg PRN PRN IV 06/25/17 21:00 07/09/17 20:59 06/26/17 07:02 25 MG Senna/Docusate Sodium (Senokot S Tab) 1 tab BID PO 06/25/17 21:00 07/25/17 20:59 06/26/17 10:01 1 TAB Sodium Chloride 1,000 ml @ 15 mls/hr Q24H IV 06/25/17 20:49 07/25/17 20:48 Fluticasone Propionate (Flonase Nasal [place]) 2 sprays DAILY TIARA 06/26/17 09:00 07/26/17 08:59 06/26/17 10:02 2 SPRAYS Miscellaneous Information (Order Awaiting Action) 1 ea QS N/A 06/26/17 00:00 07/26/17 00:00 Miscellaneous Information (Order Awaiting Action) 1 ea QS N/A 06/26/17 00:00 07/26/17 00:00 Review of Systems Review of Systems Constitutional: No fever, No chills Eyes: No double vision Neurological: No dizzy Endocrine: No excessive thirst Gastrointestinal: No abdominal pain, No nausea, No vomiting Cardiovascular: No chest pain Respiratory: No shortness of breath Skin: No rash Musculoskeletal: No back pain Female : No painful urination, No blood in urine Physical Exam Vital Signs: Vital Signs Past 12 Hours Date Time Temp Pulse Resp B/P (MAP) Pulse Ox O2 Delivery O2 Flow Rate FiO2 06/26/17 07:55 99 Room Air 06/26/17 07:50 36.9 72 22 90/60 (70) 99 Room Air 06/26/17 07:15 Room Air 06/26/17 03:24 36.7 77 16 100/69 (79) 99 Room Air 06/26/17 01:30 86 16 101/54 (70) 98 Room Air 06/26/17 00:30 88 16 104/69 (81) 98 Room Air 06/25/17 23:45 Room Air 06/25/17 23:30 37.1 81 16 108/67 (81) 97 Room Air 06/25/17 22:34 36.8 86 16 130/83 (99) 98 Room Air Physical Exam: General Appearance: no apparent distress Eyes: bilateral eyes normal inspection ENT: hearing grossly normal Neck: no JVD Respiratory/Chest: no respiratory distress, no accessory muscle use Cardiovascular: no JVD Extremities: normal inspection Neurologic/Psychiatric: alert, normal mood/affect, oriented x 3 Skin: normal color Assessment & Plan Assessment & Plan A/P: Left ureteral stone AFVSS. Will send a UC&S. KUB obtained this morning. No ureteral stones visualized, and pain has completely resolved. Stone presumed passed? Pt OK for d/c home this afternoon from [facility]. Will plan for outpatient f/u in [address] Ying with possible repeat imaging. Thanks for the consult.
[2017-06-26] MEDS ORDERED: FLM4 PO (11:03)
--- NOTE | 2017-06-26 11:04 | Discharge Instructions ---
Discharge Instructions Date of Service Jun 26, 2017. Admission Reason for Admission: Kidney Stone Discharge Discharge Diagnosis / Problem: RENAL COLIC /KIDNEY STONE Discharge Goals Goal(s): Increase independence, Improve disease control, Diagnostic testing, Therapeutic intervention Activity Recommendations Activity Limitations: resume your previous activity . Instructions / Follow-Up Instructions / Follow-Up HOSPITAL FOLLOW UP 07/03/2017 11:20 AM Wesly Ling MD [facility] UROLOGY FOLLOW UP WITH DR KB POSADA IN A WEEK OFFICE WILL CALL WITH FOR APPOINTMENT Current Hospital Diet Patient's current hospital diet: Regular Diet Discharge Diet Recommended Diet: Regular Diet Pending Studies Studies pending at discharge: no Medical Emergencies . Who to Call and When: Medical Emergencies: If at any time you feel your situation is an emergency, please call 911 immediately. . Non-Emergent Contact Non-Emergency issues call your: Primary Care Provider . . "Provider Documentation" section prepared by Bailey Watkins. . VTE Core Measure Inpt VTE Proph given/why not?: Kallie Garner, SCD's
[2017-06-26 13:24] VITALS: BP 90/60; PULSE 72; TEMP 36.9; O2SAT 99
--- NOTE | 2017-06-26 14:28 | Discharge Summary ---
Discharge Summary Date of Service Jun 26, 2017. Discharge Summary Admission Date: Jun 25, 2017 at 19:12 Discharge Date: Jun 26, 2017 Discharge Disposition: Home Principal Diagnosis: RENAL COLIC /KIDNEY STONE Procedures: CT ABDOMEN/PELVIS WITH OUT CONTRAST IMPRESSION: 1. There is a 7 mm obstructing calculus at the left vesicoureteral junction. This causes moderate left hydroureteronephrosis. 2. Numerous additional nonobstructing calculi are present in both kidneys. XRAY OF ABDOMEN IMPRESSION: 1. Probable interval passage of a distal right ureteral calculus. 2. The bilateral nephrocalcinosis described on CT examination is now well seen due to extensive overlying bowel content. 3. Nonobstructive bowel pattern. XRAY OF CHEST : IMPRESSION: No acute cardiopulmonary findings. 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 She reports a radiation of the pain into her L groin area. She denies any blood in her urine and denies UTI symptoms. She underwent a CT a/p without contrast revealing a 7mm obstructing calculus at the left vesicoureteral junction causing moderate L hydroureteronephrosis. Numerous additional nonobstructing calculi are present in both kidneys. She denies nausea, vomiting, chest pain, shortness of breath. She had a normal BM today. Physical Exam (per Admitting): General Appearance: WD/WN, + moderate distress Head: normocephalic, atraumatic Eyes: normal inspection, sclerae normal ENT: hearing grossly normal Neck: trachea midline Respiratory/Chest: lungs clear, normal breath sounds, no respiratory distress, no accessory muscle use Cardiovascular: regular rate, rhythm, no edema, no gallop, no JVD, no murmur , normal peripheral pulses Abdomen/GI: + pertinent finding (hypoactive bowel sounds, LLQ TTP, no CVA tenderness) Back: normal inspection, no CVA tenderness Extremities/Musculoskelatal: normal inspection, no pedal edema, normal range of motion 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, no motor/sensory deficits, alert , normal mood/affect, oriented x 3 Skin: normal color, warm/dry, no rash Hospital Course comfortable this morning , no complain of left flank pain , mentioned needed to use the Dilaudid [employer] pump only once and then the pain resolved , passage of renal stone spontaneously no nausea , no fever or chills , diet advanced tolerating well P/E: GEN : pleasant, no sign of distress, conversing HEENT : sclera non icteric , PERRLA/EOMI LUNGS : CTA , NO wheeze or rales HT : regular , S1/S2 ABDOMEN : soft, on tender , no CVA tenderness EXT : no rash or deformity NEURO: AAO x3, no focal deficit A/P: RENAL COLIC : presented with severe left CVA pain with radiation to groin CT abdomen /pelvis : 7 mm obstructing renal stone on left vesicoureteral junction numerous additional non obstructing stone are present in both kidneys pt is treated with IV fluids , Dilaudid [employer] for intractable pain managed to pass the stones spontaneously -no pain or discomfort Xray of KUB this morning shows -no evidence of 7 mm obstructing stone at left vesicoureteral junction appreciate urology eval diet advanced stable to be discharged home today out pt follow up with Dr Posada Urology in office , will need continued follow up with Urology for remaining numerous stones in both kidneys FULL CODE DVT PROPHYLAXIS low risk SCD and teds ambulate DISPOSITION : stable to be discharged home Medicine follow up with Dr Wesly Ling Urology follow up with Dr Wilhelm Total time spent on discharge = 35 mins This includes examination of the patient, discharge planning, medication reconciliation, and communication with other providers. Discharge Instructions Discharge Instructions Date of Service Jun 26, 2017. Admission Reason for Admission: Kidney Stone Discharge Discharge Diagnosis / Problem: RENAL COLIC /KIDNEY STONE Discharge Goals Goal(s): Increase independence, Improve disease control, Diagnostic testing, Therapeutic intervention Activity Recommendations Activity Limitations: resume your previous activity . Instructions / Follow-Up Instructions / Follow-Up HOSPITAL FOLLOW UP 07/03/2017 11:20 AM Wesly Ling MD [facility] UROLOGY FOLLOW UP WITH DR MARCELL POSADA IN A WEEK OFFICE WILL CALL WITH FOR APPOINTMENT Current Hospital Diet Patient's current hospital diet: Regular Diet Discharge Diet Recommended Diet: Regular Diet Pending Studies Studies pending at discharge: no Medical Emergencies . Who to Call and When: Medical Emergencies: If at any time you feel your situation is an emergency, please call 911 immediately. . Non-Emergent Contact Non-Emergency issues call your: Primary Care Provider . . "Provider Documentation" section prepared by Bailey Watkins. . VTE Core Measure Inpt VTE Proph given/why not?: Kallie Garner, SCD's Additional Copies To Wesly Ling M.D. Stepan, Marcell Da Silva MD, Urology
== END 2017-06-26 15:45 | disposition home or self-care (01) | DRG 694 ==
LOC: C.EDB 16:29 → C.MSN 19:12 → CANRESERV 19:23 → ENRESERV 19:23
PROVIDERS: ADMIT Hospitalist; ATTEND Hospitalist
DX: N20.0 Calculus of kidney (principal); Z79.899 Other long term (current) drug therapy; Z88.2 Allergy status to sulfonamides; Z88.6 Allergy status to analgesic agent

== ENCOUNTER → 2017-07-05 | Outpatient (CLI) | payer OTHER ==
[~2017-07-05] MED LIST changes: +AZEL30SP NAE; -BCPILLS PO; +FLUT0.15 NAE; +[UNRECOGNIZED DRUG - CODE] PO
--- NOTE | 2017-07-05 13:04 | DIAGNOSTIC IMAGING REPORT ---
RENAL ULTRASOUND CLINICAL HISTORY: Nephrolithiasis. COMPARISON STUDY: CT of the abdomen and pelvis June 25, 2017 and KUB June 26, 2017. TECHNIQUE: Sonography of the kidneys and the urinary bladder was performed. FINDINGS: The right kidney measures 12.1 cm in maximal dimension and the left kidney measures 11.6 cm. Both ureteral jets were identified. Renal size was normal. Increased echogenicity of the renal pyramids is noted. The findings suggest medullary nephrocalcinosis. Multiple right renal calculi are noted with suspected punctate left renal calculi. Note is made of an 8 mm right renal calculus. Left hydronephrosis shown on exam of June 25, 2017 has resolved. IMPRESSION: 1. No hydronephrosis. Resolution of left hydronephrosis shown on CT of June 25, 2017. 2. Bilateral nephrolithiasis with sonographic findings suggestive of medullary nephrocalcinosis. Electronically signed by: Sharath Mendoza M.D. 07/05/2017 1:03 PM Dictated Date/Time: 07/05/2017 12:59 PM
== END | disposition home or self-care (01) ==
LOC: C.ULTR 12:06
PROVIDERS: ATTEND Nurse Practitioner Adult Health
DX: N20.0 Calculus of kidney (principal)